=== PATIENT | female | born 1975 | race Caucasian/White ===

== ENCOUNTER 2017-11-18 08:50 | Emergency (ER) | payer MEDICAID ==
[2017-11-18] MEDS: ALBUTEROL 0.5% (NEB) 2.5 MG/0.5 ML AMP INH (09:43)
[2017-11-18] MEDS: IPRATROPIUM (NEB) 0.5 MG/2.5 ML AMP NEB (09:43)
[2017-11-18] MEDS: predniSONE 20 MG TAB PO (10:03)
== END 2017-11-18 11:43 | disposition home or self-care (01) ==
LOC: FTE 08:50
DX: R05 Cough (principal); R06.2 Wheezing; F17.210 Nicotine dependence, cigarettes, uncomplicated
CPT/HCPCS: 94644; 99284-25